=== PATIENT | female | born 1980 | race Caucasian/White ===

== ENCOUNTER 2020-07-03 14:42 | Emergency (ER) | payer BC, SELFPAY ==
[2020-07-03 14:56] VITALS: BP 101/79; PULSE 71; RESP 12; TEMP 36.9; O2SAT 97
--- NOTE | 2020-07-03 14:56 | ED.URI ---
HPI - URI/Sore Throat General Chief Complaint: Upper Respiratory Infection Stated Complaint: Runny nose,cough,shortness of breath Time Seen by Provider: 07/03/20 15:15 Source: patient and RN notes reviewed Mode of arrival: ambulatory Limitations: no limitations History of Present Illness HPI Narrative: 40-year-old female presents with concern for persistent cough, occasional shortness of breath, rhinorrhea, nasal congestion. Reports she has received her second Covid vaccine 2 weeks ago. She denies any known sick contacts. She reports sore throat when coughing. She reports she has been taking [place] cold overnight which has helped her sleep. She denies any other [id number] medications. She denies loss of sense of taste or smell, body aches, chills, sweats, fever. MD elicited complaint: cough Related Data Home Medications Medication Instructions Recorded Confirmed norgestimate-ethinyl estradiol 1 tablet PO DAILY 07/03/20 07/03/20 [[place]-Linyah] Allergies Allergy/AdvReac Type Severity Reaction Status Date / Time No Known Allergies Allergy Mild Verified 07/03/20 15:10 Review of Systems Review of Systems: Narrative: CONSTITUTIONAL: Denies malaise, chills, sweats, or fever. EYES: Denies visual changes, redness, or discharge. ENT: Reports rhinorrhea, congestion, occasional sore throat. Denies sinus pain, otalgia. CARDIOVASCULAR: Denies chest pain, palpitations, or edema. RESPIRATORY: Reports cough, intermittent dyspnea. GASTROINTESTINAL: Denies abdominal pain, nausea, vomiting, diarrhea SKIN: Denies rash or itching. MUSCULOSKELETAL: Denies myalgia. NEUROLOGIC: Denies headache. All systems reviewed & are unremarkable except as noted in HPI and below PMFSH Social History Social History Gender identity (if verbalized by the patient): Female Comments At time of signature, agree with nursing past medical, surgical, social and family history. There is no relevant family history pertinent to the presenting complaint Exam Narrative: Exam Narrative: GENERAL: Well-appearing, well-nourished, and in no acute distress. HEAD: Normocephalic EYES: PERRLA, conjunctivae clear ENT: Nares clear, turbinates edematous and erythematous, clear discharge. Mucous membranes moist. TM pearly ba with dull light reflex bilaterally; no tragal tenderness. Oropharynx not erythematous without lesions. Tonsils not enlarged and without exudate, no drooling, no hoarseness, no trismus, uvula midline. NECK: Supple. No lymphadenopathy CHEST: Clear to auscultation, breath sounds equal. No wheezing, rhonchi, rales, or stridor. No respiratory distress, speaks in full sentences. Cough noted HEART: Regular rate and rhythm. No murmur heard. SKIN: Warm, dry, no rash. NEURO: Alert and oriented x3. PSYCH: Normal mood and affect Course Course Emergency Course: Patient is aware of diagnosis, understands and agrees to treatment plan. Anticipatory guidance given. Patient agrees to follow-up as directed and is aware of reasons to seek care at the emergency department. Portions of this record may have been created with voice recognition software Vital Signs Vital signs: Vital Signs Temperature 98.5 F 07/03/20 14:56 Pulse Rate 71 07/03/20 14:56 Respiratory Rate 12 07/03/20 14:56 Blood Pressure 101/79 07/03/20 14:56 Pulse Oximetry 97 07/03/20 14:56 Temperature 98.5 F 07/03/20 14:56 Pulse Rate 71 07/03/20 14:56 Respiratory Rate 12 07/03/20 14:56 Blood Pressure 101/79 07/03/20 14:56 Pulse Oximetry 97 07/03/20 14:56 Reviewed. MDM - URI/Sore Throat MDM Narrative Medical decision making narrative: Differential diagnosis considered: [place] virus, strep pharyngitis, allergic rhinitis, upper respiratory tract infection, sinusitis, rhinosinusitis, nasopharyngitis. viral pharyngitis, otitis media, otitis externa, pneumonia, bronchitis, viral cough syndrome, viral syndrome, and influenza. Exam findings show no acute
== END 2020-07-03 15:36 | disposition home or self-care (01) ==
PROVIDERS: Emergency Provider Nurse Practitioner
DX: J40 Bronchitis, not specified as acute or chronic (principal); Z20.822 Contact with and (suspected) exposure to COVID-19; J45.909 Unspecified asthma, uncomplicated
CPT/HCPCS: 87081; 87426; 87804; 87880; 99213; C9803; G0463

== ENCOUNTER 2020-07-09 14:39 | Emergency (ER) | payer BC, SELFPAY ==
--- NOTE | ~2020-07-09 | XR_ITS ---
EXAMINATION: XR chest 2V 07/09/2020 15:17 INDICATION: Nonproductive cough. Difficulty breathing. PROCEDURE: 2 view chest COMPARISON: No prior studies for comparison. FINDINGS: The lungs are clear. The cardiomediastinal silhouette is within normal limits. There are no pleural effusions. There is no pneumothorax suspected. Mild wedge compression deformity of the l ower thoracic spine, likely chronic. IMPRESSION: 1: NO ACUTE CARDIOPULMONARY DISEASE. Reviewed, dictated and finalized at location A.
[2020-07-09 14:48] VITALS: BP 114/79; PULSE 80; RESP 16; TEMP 36.5; O2SAT 100
[2020-07-09 14:50] VITALS: BP 114/79; PULSE 80; RESP 16; TEMP 36.5; O2SAT 100
--- NOTE | 2020-07-09 14:57 | ED.URI ---
HPI - URI/Sore Throat General Chief Complaint: Upper Respiratory Infection Stated Complaint: cough/vomiting /diarrhea Time Seen by Provider: 07/09/20 14:57 Source: patient Mode of arrival: ambulatory Limitations: no limitations History of Present Illness HPI Narrative: Alyssa Barbosa is a 40 yo female with a PMH of asthma who comes to [facility] with asthma exacerbation. She was seen here 5 days ago with similar symptoms and was treated with a Medrol Dosepak, albuterol inhaler, and codeine cough syrup however she states that she has used the medication as directed and completed the Medrol Dosepak and her symptoms actually worsened. Her O2 sats at the time of evaluation of her 100% but she is tachycardic and tight in terms of breath sounds Related Data Home Medications Medication Instructions Recorded Confirmed norgestimate-ethinyl estradiol 1 tablet PO DAILY 07/03/20 07/09/20 [[place]-Linyah] Allergies Allergy/AdvReac Type Severity Reaction Status Date / Time No Known Allergies Allergy Mild Verified 07/03/20 15:10 Review of Systems Review of Systems: Narrative: CONSTITUTIONAL: Denies fever, chills, sweats. EYES: Denies visual changes, redness, discharge. ENT: Denies rhinorrhea, congestion, sore throat, otalgia. CARDIOVASCULAR: Denies chest pain, palpitations, edema. RESPIRATORY: Has dyspnea, no wheezing, has frequent dry cough GASTROINTESTINAL: Denies abdominal pain, nausea, vomiting, diarrhea. GENITOURINARY: Denies dysuria, hematuria, abnormal discharge SKIN: Denies rash or itching. NEUROLOGIC: Denies numbness, or focal weakness. PSYCHIATRIC: Denies anxiety or depression. COUNT INCLUDES THE [facility] Past Medical History Medical History Asthma Family History Family History (Updated 07/09/20 @ 15:08 by Kimmy Falcon CNP) Other Breast cancer Carcinoma of colon Social History Social History (Updated 07/09/20 @ 15:09 by Kimmy Falcon CNP) Smoking status: Never smoker Alcohol intake: never Gender identity (if verbalized by the patient): Female Comments At time of signature, I agree with nursing past medical, surgical, social and family history. There is no relevant family history pertinent to the presenting complaint. Exam Narrative: Exam Narrative: GENERAL: This is a well-nourished, well-developed patient, in moderate distress. HEAD: normocephalic, atraumatic. EYES: Sclera clear/white. Vision is grossly intact. EARS: External ears normal,. Hearing grossly intact. NOSE: External nose normal without nasal discharge, nares without redness, no rhinorrhea. THROAT: Mucous membranes moist, NECK: Neck supple, CARDIOVASCULAR: Regular rate and rhythm without murmurs, gallops, or rubs. RESPIRATORY: Clear to auscultation. Breath sounds equal bilaterally. No wheezes, rales, or rhonchi. GASTROINTESTINAL: Abdomen soft, non-tender, SKIN: warm, intact with no suspicious lesions or rash, good texture and turgor. NEURO: awake, alert, and oriented to person, place and time. There were no obvious focal neurologic abnormalities. Steady gait EXTREMITIES: Normal range of motion. BACK: Nontender without deformity Course Course Emergency Course: Fide Pearson is a 40-year-old female who comes with asthma exacerbation; is a return patient from 7 days ago who was treated with Medrol Dosepak, neural inhaler, codeine cough syrup Covid swab done- neg Flu swab done- neg Chest x-ray done-no active cardiopulmonary disease prednisone 60 mg po given Plan is to put on prednisone 40 mg x 5 days and antibiotic may give nebulizer treatment while here also Re-evaluation: No coughing, breathing better after treatment. Will discharge on above plan Vital Signs Vital signs: Vital Signs Temperature 97.7 F 07/09/20 14:48 Pulse Rate 80 07/09/20 14:48 Respiratory Rate 16 07/09/20 14:48 Blood Pressure 114/79 07/09/20 14:48 Pulse Oximetry 100 07/09/20 14:48 T
[2020-07-09 15:09] VITALS: O2SAT 100
[2020-07-09] MEDS: predniSONE 20 MG TABLET 60 MG PO (15:23)
[2020-07-09] MEDS: ALBUTEROL SULFATE NEB 2.5 MG/3 ML INH INHALATION (15:24)
== END 2020-07-09 15:58 | disposition home or self-care (01) ==
PROVIDERS: Emergency Provider Nurse Practitioner
DX: J45.21 Mild intermittent asthma with (acute) exacerbation (principal); Z20.822 Contact with and (suspected) exposure to COVID-19
CPT/HCPCS: 71046; 87426; 87804; 94640; 99213; C9803; G0463; J7512

== ENCOUNTER 2020-11-01 16:16 | Emergency (ER) | payer BC, SELFPAY ==
[2020-11-01 16:28] VITALS: BP 106/73; PULSE 83; RESP 16; TEMP 37.2; O2SAT 99
--- NOTE | 2020-11-01 16:39 | ED.FEMALEGU ---
HPI - Female Genitourinary General Chief complaint: Urogenital-Female Stated complaint: yeast infection Source: patient and RN notes reviewed Limitations: no limitations History of Present Illness HPI Narrative: The patient, previously mostly healthy, presents with skin eruption. Patient states she has sensitive skin and had prior vulvitis with scented soaps. She now has a nearly weeklong history of recurrent similar discomfort with use of commercial bath products. No fever, frequency/urgency/dysuria, discharge and she declines undressed physical exam , urine and STD testing. Related Data Home Medications Medication Instructions Recorded Confirmed norgestimate-ethinyl estradiol 1 tablet PO DAILY 07/03/20 11/01/20 [[place]-Linyah] Allergies Allergy/AdvReac Type Severity Reaction Status Date / Time No Known Allergies Allergy Mild Verified 11/01/20 16:32 Review of Systems Review of Systems: General/Constitutional: No weight loss,fever Eyes: N0: Redness,discharge Ears/Nose/Throat: No: Epistaxis,ear discharge Respiratory: Denies: Hemoptysis Gastrointestinal: No Vomiting, Bleeding-rectal Skin: No Lumps, REPORTS eruption Neurologic: No Focal Weakness,Sz Hematologic: Denies: Petechiae/Purpura Psychiatric: No: Suicida ideationl All Other Systems: Reviewed and Negative [facility] Past Medical History Medical History Asthma Family History Family History (Updated 07/09/20 @ 15:08 by Kimmy Falcon CNP) Other Breast cancer Carcinoma of colon Social History Social History (Updated 07/09/20 @ 15:09 by Kimmy Falcon CNP) Smoking status: Never smoker Alcohol intake: never Gender identity (if verbalized by the patient): Female Comments At time of signature, agree with nursing past medical, surgical, social and family history. There is no relevant family history pertinent to the presenting complaint Exam Narrative: General Appearance: Well appearing,, Conjunctiva clear Ears: External ear normal Nose: Normal nose Mouth/Throat: Normal appearing, Normal lips,: Supple Respiratory: Airway patent, No respiratory distress Abdomen: Soft, Musculoskeletal: Full ROM Skin: Warm, Dry Neurological: A&O x3, Normal affect Course Vital Signs Vital signs: Vital Signs Temperature 98.9 F 11/01/20 16:28 Pulse Rate 83 08/18/21 16:28 Respiratory Rate 16 11/01/20 16:28 Blood Pressure 106/73 11/01/20 16:28 Pulse Oximetry 99 11/01/20 16:28 Temperature 98.9 F 11/01/20 16:28 Pulse Rate 83 11/01/20 16:28 Respiratory Rate 16 11/01/20 16:28 Blood Pressure 106/73 11/01/20 16:28 Pulse Oximetry 99 11/01/20 16:28 MDM - Female Genitourinary Lab Data Labs: Urine Characteristics Clear Discharge Plan Discharge Clinical Impression: Acute vulvovaginitis, Pruritic condition Patient Disposition: Home, Self-Care Condition: Stable Additional Instructions: You may also use barriers like Desitin, Vaseline or Aquaphor; of course avoid irritants like baby powder, lotions, bubblebath or tight underwear. Avoid sitting in bath and apply soap at the end, rinsing well. You have declined STD/urine testing; return if worsen per handout Prescriptions: New fluconazole 150 mg tablet 150 mg PO WEEKLY Qty: 2 RF: 1 No Action norgestimate-ethinyl estradiol [[place]-Linyah] 0.25-35 mg-mcg Tablet 1 tablet PO DAILY RF: 0 Follow-up/Referrals: UNKNOWN,DOCTOR [Primary Care Provider] -
== END 2020-11-01 17:13 | disposition home or self-care (01) ==
PROVIDERS: Emergency Provider Emergency Medicine
DX: N76.0 Acute vaginitis (principal); L29.9 Pruritus, unspecified; J45.909 Unspecified asthma, uncomplicated
CPT/HCPCS: 99213; G0463

== ENCOUNTER 2021-05-25 14:08 | Emergency (ER) | payer BC, SELFPAY ==
[2021-05-25 14:19] VITALS: BP 109/77; PULSE 80; RESP 16; TEMP 37.4; O2SAT 100
--- NOTE | 2021-05-25 14:42 | ED.URI ---
HPI - URI/Sore Throat General Chief Complaint: Upper Respiratory Infection Stated Complaint: Sore Throat Time Seen by Provider: 05/25/21 14:42 Source: patient Mode of arrival: ambulatory Limitations: no limitations History of Present Illness HPI Narrative: Alyssa Barbosa is a 40 yo female with no PMH who comes to [facility] with congestion and sneezing that started this morning after sleeping overnight with the window open. States her throat has been scratchy and bothering her for the last 2 to 3 days feels somewhat congested Related Data Home Medications Medication Instructions Recorded Confirmed norgestimate-ethinyl estradiol 1 tablet PO DAILY 07/03/20 11/01/20 [[place]-Linyah] Allergies Allergy/AdvReac Type Severity Reaction Status Date / Time No Known Allergies Allergy Mild Verified 11/01/20 16:32 Review of Systems Review of Systems: CONSTITUTIONAL: Denies fever, chills, sweats. EYES: Denies visual changes, redness, discharge. ENT: Some rhinorrhea, some congestion, has sore throat, otalgia. CARDIOVASCULAR: Denies chest pain, palpitations, edema. RESPIRATORY: Denies dyspnea, wheezing, cough GASTROINTESTINAL: Denies abdominal pain, nausea, vomiting, diarrhea. GENITOURINARY: Denies dysuria, hematuria, abnormal discharge SKIN: Denies rash or itching. NEUROLOGIC: Denies numbness, or focal weakness. PSYCHIATRIC: Denies anxiety or depression. [facility] Past Medical History Medical History Asthma Family History Family History Other Breast cancer Carcinoma of colon Social History Social History (Updated 07/09/20 @ 15:09 by Kimmy Falcon CNP) Smoking status: Never smoker Alcohol intake: never Gender identity (if verbalized by the patient): Female Comments At time of signature, I agree with nursing past medical, surgical, social and family history. There is no relevant family history pertinent to the presenting complaint. Exam Narrative: GENERAL: This is a well-nourished, well-developed patient, in mild distress. HEAD: Sclera clear/white. Vision is grossly intact. EARS: External ears normal, auditory canals clear, mild redness on left and without drainage, TMs normal without perforation. Hearing grossly intact. NOSE: External nose normal with nasal discharge, nares without redness, some rhinorrhea. THROAT: Mucous membranes moist, posterior pharynx erythema with no exudate NECK: Neck supple, non-tender CARDIOVASCULAR: Regular rate and rhythm without murmurs, gallops, or rubs. RESPIRATORY: Clear to auscultation. Breath sounds equal bilaterally. No wheezes, rales, or rhonchi. GASTROINTESTINAL: Abdomen soft, non-tender, SKIN: warm, intact with no suspicious lesions or rash, good texture and turgor. NEURO: awake, alert, and oriented to person, place and time. There were no obvious focal neurologic abnormalities. Steady gait EXTREMITIES: Normal range of motion. BACK: Nontender without deformity Course Course Emergency Course: Patient has sore throat and nasal congestion x3 days worsening this morning with some left ear pain Strep test negative Started on Mucinex and prednisone Level of Care: Express Care Visit Vital Signs Vital signs: Vital Signs Temperature 99.3 F 05/25/21 14:19 Pulse Rate 80 05/25/21 14:19 Respiratory Rate 16 05/25/21 14:19 Blood Pressure 109/77 05/25/21 14:19 Pulse Oximetry 100 05/25/21 14:19 Temperature 99.3 F 05/25/21 14:19 Pulse Rate 80 05/25/21 14:19 Respiratory Rate 16 05/25/21 14:19 Blood Pressure 109/77 05/25/21 14:19 Pulse Oximetry 100 05/25/21 14:19 MDM - URI/Sore Throat Differential Diagnosis Differential diagnosis: Likely upper respiratory infection, otitis media, bronchitis, pharyngitis and other Lab Data Labs: Strep Screen Presumptive Negative *(Refere
== END 2021-05-25 15:00 | disposition home or self-care (01) ==
PROVIDERS: Emergency Provider Nurse Practitioner
DX: J06.9 Acute upper respiratory infection, unspecified (principal); J45.909 Unspecified asthma, uncomplicated
CPT/HCPCS: 87081; 87880; 99213; G0463

== ENCOUNTER 2021-08-11 12:42 | Emergency (ER) | payer BC, SELFPAY ==
[2021-08-11 12:53] VITALS: BP 115/96; PULSE 91; RESP 20; TEMP 37.9; O2SAT 99
--- NOTE | 2021-08-11 12:53 | ED.URI ---
HPI - URI/Sore Throat General Chief Complaint: Upper Respiratory Infection Stated Complaint: Sore Throat,Ear Pain Time Seen by Provider: 08/11/21 12:54 Source: patient and RN notes reviewed Mode of arrival: ambulatory Limitations: no limitations History of Present Illness HPI Narrative: 41-year-old female presented for complaint of nausea, decreased appetite, bilateral ear pain, sore throat, body aches, and fever for 2 days. She denies sick contacts. She wears her mask at work. 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 She has been boosted for COVID she is not vaccinated for flu. Give asthma. Denies shortness of breath, wheezing, vomiting, diarrhea. She has not taken anything for symptoms. MD elicited complaint: cough Related Data Home Medications Medication Instructions Recorded Confirmed norgestimate 0.25 mg-ethinyl 1 tablet PO DAILY 07/03/20 08/11/21 estradiol 35 mcg tablet ([place]-Linyah) Allergies Allergy/AdvReac Type Severity Reaction Status Date / Time No Known Allergies Allergy Mild Verified 08/11/21 12:47 Review of Systems Review of Systems: CONSTITUTIONAL: Endorses malaise, fever EYES: Denies visual changes, redness, or discharge ENT: Reports rhinorrhea, otalgia, sore throat CARDIOVASCULAR: Denies chest pain RESPIRATORY: Denies dyspnea GASTROINTESTINAL: Denies abdominal pain SKIN: Denies rash or itching MUSCULOSKELETAL: Endorses myalgia NEUROLOGIC: Endorses headache [facility] Past Medical History Medical History Asthma Family History Family History Other Breast cancer Carcinoma of colon Social History Social History Smoking status: Never smoker Alcohol intake: never Gender identity (if verbalized by the patient): Female Exam Narrative: GENERAL: Ill-appearing, nontoxic HEAD: Normocephalic EYES: , conjunctivae clear ENT: Mucous membranes moist. TM pearly ba with dull light reflex bilaterally; no tragal tenderness. Oropharynx erythematous; no drooling, no hoarseness, no trismus, uvula midline. No tripod positioning, muffled voice, soft palate or pharyngeal wall bulging NECK: Supple. No lymphadenopathy CHEST: Clear to auscultation, breath sounds equal. HEART: Regular rate and rhythm. No murmur heard. SKIN: Warm, dry, no rash. NEURO: Alert and oriented x3. Course Course Emergency Course: Patient is aware of diagnosis, understands and agrees to treatment plan. Anticipatory guidance given. Patient agrees to follow-up as directed and is aware of reasons to seek care at the emergency department. Portions of this record may have been created with voice recognition software Level of Care: Express Care Visit Vital Signs Vital signs: Vital Signs Temperature 100.2 F H 08/11/21 12:53 Pulse Rate 91 08/11/21 12:53 Respiratory Rate 20 08/11/21 12:53 Blood Pressure 115/96 H 08/11/21 12:53 Pulse Oximetry 99 08/11/21 12:53 Oxygen Delivery Room Air 08/11/21 12:53 Temperature 100.2 F H 08/11/21 12:53 Pulse Rate 91 08/11/21 12:53 Respiratory Rate 20 08/11/21 12:53 Blood Pressure 115/96 H 08/11/21 12:53 Pulse Oximetry 99 08/11/21 12:53 Oxygen Delivery Room Air 08/11/21 12:53 reviewed MDM - URI/Sore Throat MDM Narrative Medical decision making narrative: covid positive she is advised on signs and symptoms for which to go to the ER. She is advised on supportive treatments and quarantine guidelines. Verbalizes understanding Differential Diagnosis Differential diagnosis: Likely upper respiratory infection, sinusitis and viral infection Lab Data Labs: Lab Results 08/11/21 Range/Units 13:00 POC SARS CoV-2 Ag Positive (Negative) Influenza A Screen Negative Reference Range: Negative*
== END 2021-08-11 13:32 | disposition home or self-care (01) ==
PROVIDERS: Emergency Provider Nurse Practitioner Family
DX: U07.1 COVID-19 (principal)
CPT/HCPCS: 87081; 87426; 87804; 87880; 99213; C9803; G0463

== ENCOUNTER 2022-05-01 15:05 | Emergency (ER) | payer BC, SELFPAY ==
[2022-05-01 15:15] VITALS: BP 110/72; PULSE 82; RESP 16; TEMP 37; O2SAT 100
--- NOTE | 2022-05-01 15:27 | ED.URI ---
HPI - URI/Sore Throat General Chief Complaint: Upper Respiratory Infection Stated Complaint: Cough/Sinus Time Seen by Provider: 05/01/22 15:27 Source: patient Mode of arrival: ambulatory Limitations: no limitations History of Present Illness HPI Narrative: 41-year-old female presents with complaint of nasal congestion, sinus pressure, headaches, fatigue, cough for 3 days. Thinks she may have had fever yesterday. Denies nausea vomiting diarrhea. patient wants checked for COVID and influenza due to living with her grandfather who has cancer. All systems reviewed and negative except as noted above. Related Data Home Medications Medication Instructions Recorded Confirmed Depo-Provera Contraceptive 05/01/22 albuterol 05/01/22 Allergies Allergy/AdvReac Type Severity Reaction Status Date / Time No Known Allergies Allergy Mild Verified 05/01/22 15:10 Review of Systems Review of Systems: CONSTITUTIONAL: Denies fever, chills, or sweats. EYES: Denies visual changes, redness, or discharge. ENT: Reports rhinorrhea, congestion, sore throat. Denies otalgia. CARDIOVASCULAR: Denies chest pain, palpitations, or edema. RESPIRATORY: reports cough. denies dyspnea. GASTROINTESTINAL: Denies abdominal pain, nausea, vomiting, or diarrhea. GENITOURINARY: Denies dysuria or hematuria. SKIN: Denies rash or itching. MUSCULOSKELETAL: Denies back pain, joint pain, or myalgia. NEUROLOGIC: Denies headache, numbness, or weakness. PSYCHIATRIC: Denies anxiety or depression. All other systems reviewed are negative, except as documented in HPI. PMFSH Past Medical History Medical History Asthma Family History Family History Other Breast cancer Carcinoma of colon Social History Social History Smoking status: Never smoker Alcohol intake: never Gender identity (if verbalized by the patient): Female Comments At time of signature, agree with nursing past medical, surgical, social and family history. There is no relevant family history pertinent to the presenting complaint. Exam Narrative: GENERAL: This is a well-nourished, well-developed patient, in no apparent distress. HEAD: normocephalic, atraumatic. EYES: PERRL. Sclera clear/white. Vision is grossly intact. EARS: External ears normal, auditory canals clear and without drainage, TMs normal without perforation. Hearing grossly intact. NOSE: External nose normal with no obvious nasal discharge, nares without redness, no rhinorrhea. THROAT: Mucous membranes moist, Mild erythema. NECK: Neck supple, non-tender without lymphadenopathy, masses or thyromegaly. CARDIOVASCULAR: Regular rate and rhythm without murmurs, gallops, or rubs. RESPIRATORY: Clear to auscultation. Breath sounds equal bilaterally. No wheezes, rales, or rhonchi. SKIN: warm, Dry, intact with no suspicious lesions or rash, good texture and turgor. NEURO: awake, alert, and oriented to person, place and time. There were no obvious focal neurologic abnormalities. EXTREMITIES: No joint tenderness, effusion, or edema noted. Course Course Level of Care: Express Care Visit Vital Signs Vital signs: Vital Signs Temperature 37.0 C 05/01/22 15:15 Pulse Rate 82 05/01/22 15:15 Respiratory Rate 16 05/01/22 15:15 Blood Pressure 110/72 05/01/22 15:15 Pulse Oximetry 100 05/01/22 15:15 Oxygen Delivery Room Air 05/01/22 15:15 Temperature 37.0 C 05/01/22 15:15 Pulse Rate 82 05/01/22 15:15 Respiratory Rate 16 05/01/22 15:15 Blood Pressure 110/72 05/01/22 15:15 Pulse Oximetry 100 05/01/22 15:15 Oxygen Delivery Room Air 05/01/22 15:15 Reviewed MDM - URI/Sore Throat MDM Narrative Medical decision making narrative: Patient is aware of diagnosis, understands and agrees to treatment plan. Antic
== END 2022-05-01 15:59 | disposition home or self-care (01) ==
PROVIDERS: Emergency Provider Nurse Practitioner Family
DX: J10.1 Influenza due to other identified influenza virus with other respiratory manifestations (principal); Z20.822 Contact with and (suspected) exposure to COVID-19; J45.909 Unspecified asthma, uncomplicated
CPT/HCPCS: 87426; 87804; 99213; C9803; G0463

== ENCOUNTER 2023-05-11 13:10 | Emergency (ER) | payer BC, SELFPAY ==
--- NOTE | 2023-05-11 13:14 | ED.URI ---
HPI - URI/Sore Throat General Chief Complaint: Upper Respiratory Infection Stated Complaint: sore throat,ears/teeth hurt Time Seen by Provider: 05/11/23 13:14 Source: patient Mode of arrival: ambulatory Limitations: no limitations History of Present Illness HPI Narrative: Patient is a 42-year-old female who presents with chills, runny nose, congestion, some sinus pain, ear pain, sore throat this started yesterday. Took DayQuil and NyQuil yesterday but nothing today. Denies any fever, nausea, vomiting, diarrhea. Related Data Home Medications Medication Instructions Recorded Confirmed spironolactone 50 mg tablet 50 mg PO BID 05/11/23 05/11/23 Allergies Allergy/AdvReac Type Severity Reaction Status Date / Time No Known Allergies Allergy Mild Verified 05/11/23 13:17 Review of Systems Review of Systems: All systems reviewed & are unremarkable except as noted in HPI and below Constitutional: Constitutional: Denies body ache(s), Reports chills, Denies fatigue, Denies fever(s), Denies headache(s), Denies malaise and Denies weakness Eyes: Eyes: Denies blurry vision, Denies itchy eyes and Denies loss of vision ENT: Reports otalgia, Denies headache(s), Reports nasal congestion, Denies sinus pain, Reports sinus pressure and Reports sore throat Cardiovascular: Cardiovascular: Denies chest pain, Denies irregular heart rhythm and Denies dyspnea Respiratory: Respiratory: Reports cough and Denies dyspnea Gastrointestinal: Gastrointestinal: Denies abdominal pain, Denies diarrhea, Denies nausea and Denies vomiting Musculoskeletal: Musculoskeletal: Denies back pain, Denies myalgias and Denies arthralgias Integumentary/Breasts: Skin/Breast: Denies pruritus and Denies rash Neurologic: Denies headache(s), Denies loss of vision and Denies weakness Psychiatric: Psychiatric: Reports no additional psychiatric complaints Endocrine: Endocrine: Denies fatigue Allergic/Immunologic: Allergic/Immunologic: Denies itchy eyes PMFSH Past Medical History Medical History Asthma Family History Family History Other Breast cancer Carcinoma of colon Social History Social History Smoking status: Never smoker Alcohol intake: never Gender identity (if verbalized by the patient): Female Comments At time of signature, agree with nursing past medical, surgical, social and family history. There is no relevant family history pertinent to the presenting complaint. Exam Const: General: cooperative, healthy appearing, comfortable, no acute distress and well nourished Nutritional Appearance: well nourished Orientation/consciousness: patient oriented x3 Limitations: no limitations HENMT: Head: normal to inspection, normocephalic and atraumatic Ears: hearing grossly normal bilaterally, external ears normal, TM's normal bilaterally, EAC's normal and no periauricular adenopathy Face/Nose/Sinus: Normal external nose present, Abnormal mucous membranes and turbinates present erythematous bilateral and diffuse, normal facial exam, sinuses nontender and face symmetric Face and sinus: normal facial exam, sinuses nontender and face symmetric Mouth: Yes Normal oral and palatal mucosa present, Yes lip normal, Yes tongue normal, Yes Normal salivary glands and ducts present, Yes oropharynx normal and Yes moist mucous membranes Teeth and gingiva: dentition normal Throat: posterior oropharynx normal, tonsils normal and uvula midline Eyes: General: appearance normal, both eyes and all related structures Alignment and Position: alignment normal and position normal Periorbital: periorbital findings normal Eyelids: eyelids normal Pupils: Equal, round and reactive pupils present Neck: Neck: normal visual inspection, full ROM, no lymphadenopathy and supple Chest: Chest palpation & inspecti
[2023-05-11 13:20] VITALS: BP 103/67; PULSE 93; RESP 16; TEMP 37.2; O2SAT 99
== END 2023-05-11 13:56 | disposition home or self-care (01) ==
PROVIDERS: Emergency Provider Nurse Practitioner Family
DX: U07.1 COVID-19 (principal); J45.909 Unspecified asthma, uncomplicated
CPT/HCPCS: 87081; 87426; 87804; 87880; 99213; G0463